=== PATIENT | female | born 1955 | race Caucasian/White ===

== ENCOUNTER 2017-03-09 08:47 | Outpatient (CLI) | payer BC | END 2017-03-09 18:43 | disposition home or self-care (01) | LOC: SMA 08:47 | PROVIDERS: ATTEND Specialist | DX: Z12.31 Encounter for screening mammogram for malignant neoplasm of breast (principal); Z80.3 Family history of malignant neoplasm of breast | CPT/HCPCS: G0202 ==

== ENCOUNTER 2018-03-17 08:25 | Outpatient (CLI) | payer BC | END 2018-03-17 18:32 | disposition home or self-care (01) | LOC: SMA 08:25 | PROVIDERS: ATTEND Specialist | DX: Z12.31 Encounter for screening mammogram for malignant neoplasm of breast (principal); M41.84 Other forms of scoliosis, thoracic region; Z80.3 Family history of malignant neoplasm of breast; R05 Cough | CPT/HCPCS: 71046-TC; 77067 ==

== ENCOUNTER 2018-09-28 16:21 | Outpatient (CLI) | payer BC | END 2018-09-28 21:14 | disposition home or self-care (01) | LOC: SRD 16:21 | DX: I27.20 Pulmonary hypertension, unspecified (principal) | CPT/HCPCS: 71046-TC ==

== ENCOUNTER 2019-05-24 08:39 | Outpatient (CLI) | payer BC | END 2019-05-24 20:10 | disposition home or self-care (01) | LOC: SMA 08:39 | PROVIDERS: ATTEND Specialist | DX: Z12.31 Encounter for screening mammogram for malignant neoplasm of breast (principal) | CPT/HCPCS: 77067 ==

== ENCOUNTER 2019-06-11 09:39 | Outpatient (CLI) | payer BC | END 2019-06-11 21:25 | disposition home or self-care (01) | LOC: SRD 09:39 | DX: R06.02 Shortness of breath (principal); J44.9 Chronic obstructive pulmonary disease, unspecified | CPT/HCPCS: 71046-TC ==

== ENCOUNTER 2020-06-02 07:55 | Outpatient (CLI) | payer BC | END 2020-06-02 20:11 | disposition home or self-care (01) | LOC: SMA 07:55 | PROVIDERS: ATTEND Specialist | DX: Z12.31 Encounter for screening mammogram for malignant neoplasm of breast (principal); N64.89 Other specified disorders of breast | CPT/HCPCS: 77067 ==

== ENCOUNTER 2021-06-29 07:43 | Outpatient (CLI) | payer BC | END 2021-06-29 20:39 | disposition home or self-care (01) | LOC: SMA 07:43 | PROVIDERS: ATTEND Specialist | DX: Z12.31 Encounter for screening mammogram for malignant neoplasm of breast (principal) | CPT/HCPCS: 77067 ==

== ENCOUNTER 2022-05-16 21:29 | Inpatient (IN) | payer BC ==
[~2022-05-16] VITALS: Ht 177.8 cm; Wt 58.1 kg
[2022-05-16 21:41] VITALS: BP_SYST 125
[2022-05-16] MEDS ORDERED: NACL 0.9% 1,000 ML IV ONE (22:30)
[2022-05-16] MEDS ORDERED: FAMOTIDINE PF 20 MG/2 ML VIAL IVP ONE (22:30)
[2022-05-16] MEDS ORDERED: ONDANSETRON HCL 4 MG/2 ML VIAL IVP ONE (22:30)
[2022-05-16 22:38] LABS: BASOPHILS % (AUTO) 0.4 % (0.0-2.0); EOSINOPHILS # (AUTO) 0.1 K/uL (0.0-0.4); EOSINOPHILS % (AUTO) 1.9 % (0.0-4.0); HEMATOCRIT 37.5 % (36-48); HEMOGLOBIN 12.9 g/dL (12.0-16.0); LYMPHOCYTES % (AUTO) 15.2 % (20.5-51.5); MEAN CORPUSCULAR HEMOGLOBIN 31 pg (27-31); MEAN CORPUSCULAR HGB CONC 34 % (32-36); MEAN CORPUSCULAR VOLUME 91 fL (79.0-98.0); MONOCYTES # (AUTO) 0.6 K/uL (0.0-1.0); MONOCYTES % (AUTO) 8.7 % (1.7-9.3); NEUTROPHILS # (AUTO) 5.1 K/uL (1.8-7.7); NEUTROPHILS % (AUTO) 73.8 % (40.0-70.0); PLATELET COUNT (AUTO) 280 K/uL (130-430); RED BLOOD CELL COUNT(AUTO) 4.13 MIL/uL (4.2-6.2); RED CELL DISTRIBUTION WIDTH 12.6 % (9.0-15.0); WHITE BLOOD COUNT (AUTO) 6.9 K/uL (4.8-10.8)
[2022-05-16 22:52] LABS: CALCIUM 9.7 mg/dL (8.4-11.0); CREATININE 0.8 mg/dL (0.55-1.30)
[2022-05-16 22:57] LABS: ALBUMIN 3.3 g/dL (3.4-4.8); TOTAL BILIRUBIN 0.8 mg/dL (0.0-1.0)
[2022-05-17] MEDS ORDERED: DIPHENHYDRAMINE INJ 50 MG/ML VIAL IVP ONE (00:15)
[2022-05-17] MEDS ORDERED: ATEN-41 PO (00:15)
[2022-05-17] MEDS ORDERED: METOCLOPRAMIDE HCL 10 MG/2 ML VIAL IVP ONE (00:15)
[2022-05-17 01:19] LABS: BILIRUBIN,URINE 1+ (NEGATIVE); BLOOD, URINE NEGATIVE (NEGATIVE); CLARITY/URINE CLEAR (CLEAR); COLOR,URINE YELLOW (YELLOW); GLUCOSE,URINE NEGATIVE (NEGATIVE); KETONES,URINE 2+ (NEGATIVE); LEUKOCYTE ESTERASE ,URINE NEGATIVE (NEGATIVE); NITRITE, URINE NEGATIVE (NEGATIVE); PH,URINE 6.5 (5.0-8.0); PROTEIN URINE NEGATIVE (NEGATIVE)
[2022-05-17] MEDS ORDERED: ONDANSETRON HCL 4 MG/2 ML VIAL IVP PRN (04:15)
[2022-05-17] MEDS: D5/0.45 NS 1,000 ML IV SCH ×2 (05:32→18:30)
[2022-05-17 06:11] VITALS: BP_SYST 105
[2022-05-17 08:40] VITALS: BP_SYST 109
[2022-05-17] MEDS ORDERED: HYDROcodone/ACETAMIN 5-325 MG TAB (NORCO/ VICODIN) PO PRN (10:15)
[2022-05-17] MEDS ORDERED: NALOXONE HCL 0.4 MG/ML AMP (NARCAN) IVP PRN ×2 (10:15)
[2022-05-17] MEDS ORDERED: HYDROcodone/ACETAMIN 10-325 MG TAB PO PRN (10:15)
[2022-05-17] MEDS ORDERED: ACETAMINOPHEN 325 MG TABLET PO PRN (10:15)
[2022-05-17] MEDS ORDERED: LORazepam 2 MG/ML VIAL IVP PRN (10:15)
[2022-05-17 11:30] VITALS: BP_SYST 105
[2022-05-17 16:00] VITALS: BP_SYST 112
[2022-05-17] MEDS: PANTOPRAZOLE SODIUM 40 MG/VIAL (PROTONIX) IVP ONE ×2 (18:29→18:35)
[2022-05-17 19:55] VITALS: BP_SYST 102
[2022-05-18] VITALS: BP_SYST 105
[2022-05-18] MEDS: D5/0.45 NS 1,000 ML IV SCH ×3 (00:08→21:29)
[2022-05-18 07:06] LABS: BASOPHILS % (AUTO) 0.7 % (0.0-2.0); EOSINOPHILS # (AUTO) 0.4 K/uL (0.0-0.4); EOSINOPHILS % (AUTO) 6.7 % (0.0-4.0); HEMATOCRIT 34.2 % (36-48); HEMOGLOBIN 11.8 g/dL (12.0-16.0); LYMPHOCYTES # (AUTO) 1.5 K/uL (1.0-5.5); MEAN CORPUSCULAR HEMOGLOBIN 31 pg (27-31); MEAN CORPUSCULAR HGB CONC 35 % (32-36); MEAN CORPUSCULAR VOLUME 91 fL (79.0-98.0); MONOCYTES # (AUTO) 0.7 K/uL (0.0-1.0); MONOCYTES % (AUTO) 11.4 % (1.7-9.3); NEUTROPHILS # (AUTO) 3.7 K/uL (1.8-7.7); NEUTROPHILS % (AUTO) 58.2 % (40.0-70.0); PLATELET COUNT (AUTO) 250 K/uL (130-430); RED BLOOD CELL COUNT(AUTO) 3.75 MIL/uL (4.2-6.2); RED CELL DISTRIBUTION WIDTH 12.8 % (9.0-15.0); WHITE BLOOD COUNT (AUTO) 6.4 K/uL (4.8-10.8)
[2022-05-18] MEDS ORDERED: MEPERIDINE HCL/PF 25 MG/ML DISP.SYRIN ONE (07:28)
[2022-05-18] MEDS ORDERED: MIDAZOLAM HCL 5 MG/5 ML VIAL ONE (07:29)
[2022-05-18 07:58] LABS: PROTHROMBIN TIME 10.7 SECS (9.5-12.5)
[2022-05-18 08:05] VITALS: BP_SYST 115
[2022-05-18 08:09] LABS: CALCIUM 8.9 mg/dL (8.4-11.0); CREATININE 0.77 mg/dL (0.55-1.30)
[2022-05-18] MEDS: ATENOLOL 25 MG TABLET(TENORMIN) PO SCH (08:17)
[2022-05-18] MEDS ORDERED: PANTOPRAZOLE SODIUM 40 MG/VIAL (PROTONIX) IVP SCH (09:00)
[2022-05-18] MEDS ORDERED: KETOROLAC TROMETHAMINE 30 MG VIAL IVP PRN (10:15)
[2022-05-18] MEDS ORDERED: KETOROLAC TROMETHAMINE 30 MG VIAL ONE (10:20)
[2022-05-18] MEDS ORDERED: METOCLOPRAMIDE HCL 10 MG/2 ML VIAL ONE (10:49)
[2022-05-18] MEDS ORDERED: METOCLOPRAMIDE HCL 10 MG/2 ML VIAL IVP PRN (11:15)
[2022-05-18 11:34] VITALS: BP_SYST 124
[2022-05-18] MEDS ORDERED: METOCLOPRAMIDE HCL 10 MG/2 ML VIAL IVP SCH (12:00)
[2022-05-18] MEDS ORDERED: SUCRALFATE 1 GM/10 ML UDC GT ONE (12:00)
[2022-05-18 12:30] VITALS: BP_SYST 92
[2022-05-18] MEDS: PANTOPRAZOLE SODIUM 40 MG in NS 50 ML IV SCH ×3 (12:59→23:15)
[2022-05-18 15:28] VITALS: BP_SYST 101
[2022-05-18] MEDS: SUCRALFATE 1 GM/10 ML UDC GT SCH ×2 (18:41→21:29)
[2022-05-18 20:00] VITALS: BP_SYST 119
[2022-05-19] MEDS: PANTOPRAZOLE SODIUM 40 MG in NS 50 ML IV SCH ×3 (05:04→13:45)
[2022-05-19] MEDS: D5/0.45 NS 1,000 ML IV SCH ×2 (05:05→16:15)
[2022-05-19] MEDS: SUCRALFATE 1 GM/10 ML UDC GT SCH ×2 (06:38→12:48)
[2022-05-19 07:00] LABS: BASOPHILS % (AUTO) 0.8 % (0.0-2.0); EOSINOPHILS # (AUTO) 0.6 K/uL (0.0-0.4); EOSINOPHILS % (AUTO) 10.6 % (0.0-4.0); HEMATOCRIT 31.5 % (36-48); LYMPHOCYTES # (AUTO) 1.4 K/uL (1.0-5.5); LYMPHOCYTES % (AUTO) 27.3 % (20.5-51.5); MEAN CORPUSCULAR HEMOGLOBIN 32 pg (27-31); MEAN CORPUSCULAR HGB CONC 35 % (32-36); MEAN CORPUSCULAR VOLUME 92 fL (79.0-98.0); MONOCYTES # (AUTO) 0.6 K/uL (0.0-1.0); MONOCYTES % (AUTO) 10.6 % (1.7-9.3); NEUTROPHILS # (AUTO) 2.6 K/uL (1.8-7.7); NEUTROPHILS % (AUTO) 50.7 % (40.0-70.0); PLATELET COUNT (AUTO) 219 K/uL (130-430); RED BLOOD CELL COUNT(AUTO) 3.44 MIL/uL (4.2-6.2); RED CELL DISTRIBUTION WIDTH 12.5 % (9.0-15.0); WHITE BLOOD COUNT (AUTO) 5.2 K/uL (4.8-10.8)
[2022-05-19 07:06] LABS: CEA 1.9 ng/mL (0.0-4.7)
[2022-05-19 08:58] LABS: ALBUMIN 2.5 g/dL (3.4-4.8); CALCIUM 8.7 mg/dL (8.4-11.0); CREATININE 0.8 mg/dL (0.55-1.30); TOTAL BILIRUBIN 0.3 mg/dL (0.0-1.0)
[2022-05-19] MEDS: ATENOLOL 25 MG TABLET(TENORMIN) PO SCH (09:23)
[2022-05-19] MEDS ORDERED: HYDR-3917 PO (10:54)
[2022-05-19] MEDS ORDERED: METO-290 PO (10:54)
[2022-05-19] MEDS ORDERED: SUCR1ORA4 PO (10:54)
[2022-05-19] MEDS ORDERED: PRO40 PO (10:54)
[2022-05-19 12:12] VITALS: BP_SYST 114
[2022-05-19 15:23] VITALS: BP_SYST 114
== END 2022-05-19 16:25 | disposition home or self-care (01) | DRG 384 ==
LOC: SED 21:29 → SMU 05-17 04:14
PROVIDERS: ADMIT Preventive Medicine Preventive Medicine/Occupational Environmental Medicine; ATTEND Preventive Medicine Preventive Medicine/Occupational Environmental Medicine
PROC: 0DB78ZX Excision of Stomach, Pylorus, Via Natural or Artificial Opening Endoscopic, Diagnostic (ICD-10-PCS; principal; 2022-05-18 10:35)
DX: K26.9 Duodenal ulcer, unspecified as acute or chronic, without hemorrhage or perforation (principal); K29.70 Gastritis, unspecified, without bleeding; K86.9 Disease of pancreas, unspecified; E88.09 Other disorders of plasma-protein metabolism, not elsewhere classified; Z20.822 Contact with and (suspected) exposure to COVID-19; D64.9 Anemia, unspecified; R73.9 Hyperglycemia, unspecified; I34.1 Nonrheumatic mitral (valve) prolapse; T39.395A Adverse effect of other nonsteroidal anti-inflammatory drugs [NSAID], initial encounter; Y92.89 Other specified places as the place of occurrence of the external cause
CPT/HCPCS: 36415; 43239; 74181; 76376; 76700-TC; 80048; 80053; 81003; 82378; 83690; 85025; 85610-TC; 85730-TC; 86301; 87081; 88305; 88312; 88313; 93005; 96361; 96374; 96375; 99285; C9113; J1200; J1885; J2175; J2250; J2405; J2765; J3490; Q9967

== ENCOUNTER 2022-08-05 09:15 | Outpatient (CLI) | payer BC ==
[~2022-08-05 09:15] MED LIST: ATEN-41 PO; HYDR-3917 PO; METO-290 PO; PRO40 PO; SUCR1ORA4 PO
== END 2022-08-05 18:21 | disposition home or self-care (01) ==
LOC: SMA 09:15
PROVIDERS: ATTEND Specialist
DX: Z12.31 Encounter for screening mammogram for malignant neoplasm of breast (principal)
CPT/HCPCS: 77067

== ENCOUNTER 2023-09-22 09:12 | Outpatient (CLI) | payer BC | END 2023-09-22 20:39 | disposition home or self-care (01) | LOC: SMA 09:12 | PROVIDERS: ATTEND Specialist | DX: Z12.31 Encounter for screening mammogram for malignant neoplasm of breast (principal); Z80.3 Family history of malignant neoplasm of breast; R92.333 Mammographic heterogeneous density, bilateral breasts | CPT/HCPCS: 77067 ==